=== PATIENT | male | born 1970 | race Caucasian/White ===

== ENCOUNTER → 2020-12-12 | Outpatient (CLI) | payer SELFPAY | END | disposition home or self-care (01) | LOC: RAH 13:07 | PROVIDERS: ATTEND Family Medicine | DX: M50.222 Other cervical disc displacement at C5-C6 level (principal); M48.02 Spinal stenosis, cervical region; G95.89 Other specified diseases of spinal cord; M48.061 Spinal stenosis, lumbar region without neurogenic claudication | CPT/HCPCS: 72141 ==

== ENCOUNTER 2020-12-18 09:00 | Inpatient (IN) | payer OTHER ==
[~2020-12-18] VITALS: Ht 203.2 cm; Wt 148.3 kg
[2020-12-18 11:58] LABS: BASOPHILS % (AUTO) 0.5 % (0.0-5.0); EOSINOPHILS % (AUTO) 2.7 % (0.0-8.0); HEMATOCRIT 48.7 % (42-54); LYMPHOCYTES % (AUTO) 24.9 % (21.0-51.0); MEAN CORPUSCULAR HEMOGLOBIN 30.4 pg (27.0-33.0); MEAN CORPUSCULAR HGB CONC 32.9 g/dL (32.0-36.0); MEAN CORPUSCULAR VOLUME 92.4 fL (79-99); MONOCYTES % (AUTO) 8.2 % (3.0-13.0); NEUTROPHILS % (AUTO) 62.9 % (40.0-77.0); PLATELET COUNT (AUTO) 188 K/uL (130-400); RED BLOOD CELL COUNT(AUTO) 5.27 MIL/uL (4.50-6.20); RED CELL DISTRIBUTION WIDTH 12.7 % (11.0-15.5); WHITE BLOOD COUNT (AUTO) 7.8 K/uL (4.8-10.8)
[2020-12-18 12:00] LABS: POTASSIUM 4.7 mmol/L (3.5-5.1)
[2020-12-23] MEDS ORDERED: LEVO150C4 PO (09:56)
[2020-12-23] MEDS ORDERED: PREG75 PO (09:56)
[2020-12-24] VITALS (17 sets, daily range): BP systolic 107–140; BP diastolic 56–85
[2020-12-24] MEDS ORDERED: LACTATED RINGERS 1000ML 1,000 ML IV ONE (06:19)
[2020-12-24] MEDS ORDERED: DEXAMETHASONE SOD PHOSPHATE 10MG/ML 1ML VIAL ONE ×2 (06:44→06:57)
[2020-12-24] MEDS ORDERED: PROPOFOL 10 MG/ML 20ML VIAL IV ONE (06:44)
[2020-12-24] MEDS ORDERED: LIDOCAINE PF 100MG/5ML (2%) SYRINGE 5ML ONE (06:44)
[2020-12-24] MEDS ORDERED: GLYCOPYRROLATE 1 MG/5 ML SYRINGE ONE (06:44)
[2020-12-24] MEDS ORDERED: SUCCINYLCHOLINE CHLORIDE 20 MG/ML 10 ML VIAL ONE (06:44)
[2020-12-24] MEDS ORDERED: MIDAZOLAM HCL 1 MG/ML 2ML VIAL ONE (06:44)
[2020-12-24] MEDS ORDERED: BUPIVACAINE/EPI/PF 0.5% 30ML VIAL IJ ONE (06:45)
[2020-12-24] MEDS ORDERED: ONDANSETRON 4MG INJ ONE ×2 (06:45→11:54)
[2020-12-24] MEDS ORDERED: ROCURONIUM 10MG/1ML SYR 10 MG/ML ML ONE ×2 (06:45→09:30)
[2020-12-24] MEDS ORDERED: CEFAZOLIN SODIUM 1 GM VIAL ONE ×2 (06:45→10:28)
[2020-12-24] MEDS ORDERED: NEOSTIGMINE 5MG/5ML SYR IV ONE (06:45)
[2020-12-24] MEDS ORDERED: PHENYLEPHRINE HCL 10 MG/ML 1ML VIAL IV ONE (06:45)
[2020-12-24] MEDS ORDERED: THROMBIN-JMI 5000 UNIT/VIAL TP ONE (06:45)
[2020-12-24] MEDS ORDERED: FENTANYL CITRATE PF 50 MCG/1 ML 2ML VIAL ONE ×3 (06:45→11:32)
[2020-12-24] MEDS ORDERED: MANNITOL 20% 500ML BAG 500 ML IV ONE (07:13)
[2020-12-24] MEDS: CEFAZOLIN SODIUM 1 GM VIAL ONE ×2 (07:27→07:30)
[2020-12-24] MEDS ORDERED: FENTANYL CITRATE PF 50 MCG/1 ML 5ML AMP IV ONE (07:33)
[2020-12-24] MEDS ORDERED: ARTIFICIAL TEARS 3.5 GM OINTMENT ONE (07:50)
[2020-12-24] MEDS ORDERED: CEFAZOLIN SODIUM 100 GM IV SCH (12:30)
[2020-12-24] MEDS ORDERED: PROMETHAZINE HCL 25 MG/ML 1ML AMPULE IM PRN (12:30)
[2020-12-24] MEDS ORDERED: LACTATED RINGERS 1000ML 1,000 ML IV SCH (12:30)
[2020-12-24] MEDS ORDERED: 0.9%NACL 10ML VIAL IVP PRN (12:30)
[2020-12-24] MEDS ORDERED: MORPHINE 2 MG SYG IVP PRN (12:30)
[2020-12-24] MEDS: DEXAMETHASONE SOD PHOSPHATE 4 MG/ML 1ML VIAL IVP SCH ×2 (12:30→18:18)
[2020-12-24] MEDS ORDERED: HYDROCODONE/ACETAMINOPHEN 5/325 MG TAB PO PRN (12:30)
[2020-12-24] MEDS ORDERED: MEPERIDINE-PF 25 MG/ML SYG ONE (13:01)
[2020-12-24] MEDS: PREGABALIN 75 MG CAPSULE PO SCH (20:56)
[2020-12-24] MEDS ORDERED: CEFAZOLIN SODIUM 100 GM IV ONE (21:00)
[2020-12-25] MEDS: DEXAMETHASONE SOD PHOSPHATE 4 MG/ML 1ML VIAL IVP SCH ×2 (00:30→05:10)
[2020-12-25 04:31] VITALS: BP 116/69
[2020-12-25] MEDS ORDERED: LEVOTHYROXINE 150 MCG TABLET PO SCH (06:30)
[2020-12-25 07:00] VITALS: BP 118/70
[2020-12-25] MEDS: PREGABALIN 75 MG CAPSULE PO SCH (08:29)
== END 2020-12-25 10:52 | disposition home or self-care (01) | DRG 473 ==
LOC: EDSTATUS 09:00 → DAHIP 12-24 05:41 → 3BH 12-24 13:14
PROVIDERS: ADMIT Neurological Surgery; ATTEND Neurological Surgery
PROC: 0RG20A0 Fusion of 2 or more Cervical Vertebral Joints with Interbody Fusion Device, Anterior Approach, Anterior Column, Open Approach (ICD-10-PCS; principal; 2020-12-24 07:30)
PROC: 0RB30ZZ Excision of Cervical Vertebral Disc, Open Approach (ICD-10-PCS; 2020-12-24 07:30)
PROC: 4A11X4G Monitoring of Peripheral Nervous Electrical Activity, Intraoperative, External Approach (ICD-10-PCS; 2020-12-24 07:30)
DX: M48.02 Spinal stenosis, cervical region (principal); M54.10 Radiculopathy, site unspecified; M25.78 Osteophyte, vertebrae; E03.9 Hypothyroidism, unspecified; Z20.822 Contact with and (suspected) exposure to COVID-19
CPT/HCPCS: 36415; 71045; 72020; 80051; 85025; 93005; A4344; G0378; J0330; J0690; J1100; J2001; J2175; J2250; J2370; J2405; J2704; J2710; J3010; J3490; J7030; J7120; U0003

== ENCOUNTER → 2021-01-26 | Outpatient (CLI) | payer OTHER ==
[~2021-01-26] MED LIST: LEVO150C4 PO; PREG75 PO
== END | disposition home or self-care (01) ==
LOC: OIH 09:11
PROVIDERS: ATTEND Neurological Surgery
DX: M43.22 Fusion of spine, cervical region (principal)
CPT/HCPCS: 72040